=== PATIENT | female | born 1980 | race Caucasian/White ===

== ENCOUNTER 2019-05-01 20:21 | Emergency (ER) | payer SELFPAY ==
[~2019-05-01] VITALS: Ht 152.4 cm; Wt 68.9 kg
[2019-05-01] MEDS ORDERED: SULF1TAB24 PO (20:55)
--- NOTE | 2019-05-01 20:56 | PHYS DOC ---
Past Medical History Attending Signature I have participated in the care of this patient and I have reviewed and agree with all pertinent clinical information above including history, exam, and recommendations. Adult General Chief Complaint Chief Complaint: LOWER EXTREMITY SWELLING HPI HPI 39-year-old female presents to the emergency department with complaints of sores to her left lower extremity. She has 2 areas of induration, one is draining a yellow stuff second his only erythematous and indurated, no fluctuance. Patient denies any fever, nausea, vomiting, chest pain, shortness of breath. Nothing makes her symptoms worse, nothing makes her symptoms better. She's attempted to aspirate and has only irritated the area. Review of Systems Review of Systems Constitutional: Denies fever or chills [] GI: Denies abdominal pain, nausea, vomiting, bloody stools or diarrhea [] Musculoskeletal: Denies back pain or joint pain [] Integument: 2 areas of induration, erythema, no fluctuance Neurologic: Denies headache, focal weakness or sensory changes [] All other systems were reviewed and found to be within normal limits, except as documented in this note. Current Medications Current Medications Current Medications Medications (Trade) Dose Ordered Sig/Cherelle Start Time Stop Time Status Last Admin Dose Admin Ceftriaxone Sodium (Rocephin) 1 gm 1X ONCE 05/01/19 21:00 05/01/19 21:01 DC 05/01/19 21:08 1 GM Allergies Allergies Allergies Coded Allergies Type Severity Reaction Last Updated Verified No Known Drug Allergies 05/01/19 No Physical Exam Physical Exam Constitutional: Well developed, well nourished, no acute distress, non-toxic appearance. [] Cardiovascular:Heart rate regular rhythm, no murmur [] Lungs & Thorax: Bilateral breath sounds clear to auscultation [] Skin: Warm, dry, no erythema, no rash. [] Back: No tenderness, no CVA tenderness. [] Extremities: left lower ext edema, warmth, redness appreciated 2 areas of induration, one with some drainage however non fluctuant [] Neurologic: Alert and oriented X 3, no focal deficits noted. [] Psychologic: Affect normal, judgement normal, mood normal. [] Current Patient Data Vital Signs Vital Signs Date Time Temp Pulse Resp B/P (MAP) Pulse Ox O2 Delivery O2 Flow Rate FiO2 05/01/19 21:00 99 17 111/64 (80) 99 Room Air 05/01/19 20:30 97.4 97.4 EKG EKG [] Radiology/Procedures Radiology/Procedures [] Course & Med Decision Making Course & Med Decision Making Pertinent Labs and Imaging studies reviewed. (See chart for details) []39-year-old female presents to the emergency department with complaints of sores to her left lower extremity. She has 2 areas of induration, one is draining a yellow stuff second his only erythematous and indurated, no fluctuance. Patient denies any fever, nausea, vomiting, chest pain, shortness of breath. Nothing makes her symptoms worse, nothing makes her symptoms better. She's attempted to aspirate and has only irritated the area. 2 areas of induration appreciated, the one area on the tilley is draining however very thick discharge, no fluctuance in either Cellulitic changes appreciated to left lower ext [id number] given in ER Plan Bactrim DS upon discharge Return precautions provided Dragon Disclaimer Dragon Disclaimer This electronic medical record was generated, in whole or in part, using a voice recognition dictation system. Departure Departure Impression: Primary Impression: Lower extremity cellulitis Additional Impression: Abscess of lower leg Disposition: HOME, SELF-CARE Condition: STABLE Referrals: NO PCP (PCP) Patient Instructions: Abscess, [id number], Cellulitis, [id number] Additional Instructions: Recommend follow up with PCP 3 - 5 days Return to the ER with worsening symptoms, intractable pain, fever, altered mental status Tylenol/Motrin as needed for pain Take antibiotics as directed Tramadol as needed for pain Scripts Sulfamethoxazole/Trimethoprim (BACTRIM DS TABLET) 1 Each Tablet 1 TAB PO BID for infection, #14 TAB Prov: AURA GALLEGO MD 05/01/19 Problem Qualifiers Primary Impression: Lower extremity cellulitis Laterality: left Qualified Codes: L03.116 - Cellulitis of left lower limb AURA GALLEGO MD May 01, 2019 20:56
[2019-05-01 21:00] VITALS: BP 111/64
[2019-05-01] MEDS ORDERED: cefTRIAXone IV Push 1 GM VIAL. IVP ONE (21:00)
== END 2019-05-01 21:10 | disposition home or self-care (01) ==
LOC: ER 20:21
DX: L03.116 Cellulitis of left lower limb (principal); L02.416 Cutaneous abscess of left lower limb
CPT/HCPCS: 96374; 99284; J0696

== ENCOUNTER 2019-06-20 09:58 | Emergency (ER) | payer SELFPAY ==
[~2019-06-20] VITALS: Ht 152.4 cm; Wt 68.1 kg
[~2019-06-20 09:58] MED LIST: SULF1TAB24 PO
[2019-06-20 10:21] VITALS: BP 136/78
[2019-06-20] MEDS ORDERED: IPRATRPIUM/ALBUTEROL 0.5/2.5MG 3 ML NEBU. NEB ONE (10:45)
--- NOTE | 2019-06-20 11:01 | PHYS DOC ---
Past Medical History Past Medical History: No Pertinent History (BRENDON TAYLOR APRN) Past Surgical History: Appendectomy (BRENDON TAYLOR APRN) Smoking Status: Current Every Day Smoker Alcohol Use: None Drug Use: Marijuana (BRENDON TAYLOR APRN) Adult General Chief Complaint Chief Complaint: COUGH HPI HPI Patient is a 39 year old female currently smoker presented to the ED today complaining of a cough for 3 days. Patient is also complaining of body aches, she states everything hurts including her hair ends. Patient is also complaining of vomiting. Denies any chance she is . Denies any significant abdominal pain. (BRENDON TAYLOR APRN) Review of Systems Review of Systems Constitutional: Reports subjective fevers, body aches Eyes: Denies change in visual acuity, redness, or eye pain [] HENT: Denies nasal congestion, sore throat [] Respiratory: Reports cough, denies shortness of breath [] Cardiovascular: No additional information not addressed in HPI [] GI: Reports vomiting. Denies abdominal pain, nausea, bloody stools or diarrhea [] : Denies dysuria or hematuria [] Musculoskeletal: Denies back pain or joint pain [] Integument: Denies rash or skin lesions [] Neurologic: Denies headache, focal weakness or sensory changes [] All other systems were reviewed and found to be within normal limits, except as documented in this note. (BRENDON TAYLOR APRN) Current Medications Current Medications Current Medications Medications (Trade) Dose Ordered Sig/Cherelle Start Time Stop Time Status Last Admin Dose Admin Albuterol/ Ipratropium (Duoneb) 3 ml 1X ONCE 06/20/19 10:45 06/20/19 10:46 DC 06/20/19 10:41 3 ML (JASSON PHILLIPS DO) Allergies Allergies Allergies Coded Allergies Type Severity Reaction Last Updated Verified No Known Drug Allergies 05/01/19 No (JASSON PHILLIPS DO) Physical Exam Physical Exam Constitutional: Well developed, well nourished, no acute distress, non-toxic appearance. [] HENT: Normocephalic, atraumatic, bilateral external ears normal, oropharynx moist, no oral exudates, nose normal. [] Eyes: PERRLA, EOMI, conjunctiva normal, no discharge. [] Neck: Normal range of motion, no tenderness, supple, no stridor. [] Cardiovascular:Heart rate regular rhythm, no murmur [] Lungs & Thorax: Bilateral breath sounds clear to auscultation [] Abdomen: Bowel sounds normal, soft, no tenderness, no masses, no pulsatile masses. [] Skin: Warm, dry, no erythema, no rash. [] Back: No tenderness, no CVA tenderness. [] Extremities: No tenderness, no cyanosis, no clubbing, ROM intact, no edema. [] Neurologic: Alert and oriented X 3, normal motor function, normal sensory function, no focal deficits noted. [] Psychologic: Affect normal, judgement normal, mood normal. [] (BRENDON TAYLOR APRN) Current Patient Data Vital Signs Vital Signs Date Time Temp Pulse Resp B/P (MAP) Pulse Ox O2 Delivery O2 Flow Rate FiO2 06/20/19 10:41 99 Room Air 06/20/19 10:21 99.2 67 16 136/78 (97) 99.2 (JASSON PHILLIPS DO) Lab Values Laboratory Tests Test 06/20/19 10:47 POC Urine HCG, Qualitative Hcg negative (Negative) (JASSON PHILLIPS DO) EKG EKG [] (BRENDON TAYLOR APRN) Radiology/Procedures Radiology/Procedures []PROCEDURE: CHEST PA & LATERAL EXAM: Chest, 2 views. HISTORY: Fever. Cold. COMPARISON: None. FINDINGS: 2 views of the chest are obtained. There is no infiltrate, pleural effusion or pneumothorax. The heart is normal in size. IMPRESSION: No acute pulmonary finding. Electronically signed by: Colleen Jolly MD (06/20/2019 11:18 AM) [facility] [place] DICTATED and SIGNED BY: COLLEEN JOLLY MD DATE: 06/20/19 1118 (BRENDON TAYLOR APRN) Course & Med Decision Making Course & Med Decision Making Pertinent Labs and Imaging studies reviewed. (See chart for details) This is a 39-year-old female patient presenting to the ED today with a cough for 3 days. Also complaining of body aches and subjective fevers. Chest x-ray interpreted by radiologist is negative for any acute findings. Patient received a DuoNeb treatment in the ED. Provided a note for work and discharged to home. (BRENDON TAYLOR APRN) Dragon Disclaimer Dragon Disclaimer This electronic medical record was generated, in whole or in part, using a voice recognition dictation system. (BRENDON TAYLOR APRN) Departure Departure Impression: Primary Impression: Smoking addiction Additional Impressions: Cough Fever Disposition: 01 HOME, SELF-CARE Condition: STABLE Referrals: NO PCP (PCP) follow up with your doctor in 1-2 weeks Patient Instructions: Cough, Adult, [id number], Smoking Cessation Additional Instructions: Please consider smoking cessation. You can take over the counter medications for your symptoms as needed for your symptoms. You need to follow up with your doctor in 1-2 weeks Scripts Albuterol Sulfate (PROAIR HFA INHALER) 8.5 Gm Hfa.aer.ad 2 PUFF IH PRN Q4-6HRS PRN for wheezing for 21 Days, #1 INHALER 0 Refills Prov: BRENDON TAYLOR APRN 06/20/19 Benzonatate (TESSALON PERLE) 100 Mg Capsule 1 CAP PO TID, #30 CAP Prov: BRENDON TAYLOR APRN 06/20/19 Attending Signature Attending Signature I have reviewed the PA/REPRODUCTION TECHNICIAN's note and plan of care. I was available for consultation as needed during the patient's visit in the emergency department. I agree with the clinical impression, plan, and disposition. (JASSON PHILLIPS DO) Problem Qualifiers Additional Impressions: Fever Fever type: unspecified Qualified Codes: R50.9 - Fever, unspecified BRENDON TAYLOR APRN Jun 20, 2019 11:01 JASSON PHILLIPS DO Jun 20, 2019 15:30
--- NOTE | 2019-06-20 11:21 | RAD ---
EXAM: Chest, 2 views. HISTORY: Fever. Cold. COMPARISON: None. FINDINGS: 2 views of the chest are obtained. There is no infiltrate, pleural effusion or pneumothorax. The heart is normal in size. IMPRESSION: No acute pulmonary finding. Electronically signed by: Colleen Jolly MD (06/20/2019 11:18 AM) [facility] [place]
[2019-06-20] MEDS ORDERED: BENZ100C PO (11:27)
[2019-06-20] MEDS ORDERED: ALBU2.5V8 IH (11:27)
== END 2019-06-20 11:44 | disposition home or self-care (01) ==
LOC: ER 09:58
DX: F17.200 Nicotine dependence, unspecified, uncomplicated (principal); R50.9 Fever, unspecified; R05 Cough; R11.10 Vomiting, unspecified; F12.90 Cannabis use, unspecified, uncomplicated; Z90.89 Acquired absence of other organs
CPT/HCPCS: 71046; 81025; 94640; 99283; J7620

== ENCOUNTER 2019-07-02 04:04 | Emergency (ER) | payer SELFPAY ==
[~2019-07-02] VITALS: Ht 152.4 cm; Wt 68.9 kg
[~2019-07-02 04:04] MED LIST changes: +ALBU2.5V8 IH; +BENZ100C PO
[2019-07-02 04:16] VITALS: BP 123/75
[2019-07-02] MEDS ORDERED: GUAI120L35 PO (04:35)
[2019-07-02] MEDS ORDERED: AZIT250T PO (04:35)
--- NOTE | 2019-07-02 04:35 | PHYS DOC ---
Past Medical History Past Medical History: No Pertinent History Past Surgical History: Appendectomy Smoking Status: Current Every Day Smoker Alcohol Use: None Drug Use: Marijuana Adult General Chief Complaint Chief Complaint: PLEURISY HPI HPI Patient is a 39 year old female who presents with complaint of cough and chest congestion for the last few days. Patient states that she is now having pain on the left side of her chest that radiates from her back all the way around to the front. She states the pain is worsened with deep breathing and with coughing. She describes pain as sharp and stabbing and at times burning in nature. She states the cough is been productive of clear to yellow sputum. Patient states that nothing is improving her symptoms. She denies any fever. She denies any nausea, vomiting or diaphoresis.[] Review of Systems Review of Systems Constitutional: Denies fever or chills [] Respiratory: Positive cough without shortness of breath [] Cardiovascular: No additional information not addressed in HPI [] GI: Denies abdominal pain, nausea, vomiting or diarrhea [] Integument: Denies rash or skin lesions [] Neurologic: Denies headache, focal weakness or sensory changes [] Allergies Allergies Allergies Coded Allergies Type Severity Reaction Last Updated Verified No Known Drug Allergies 05/01/19 No Physical Exam Physical Exam Constitutional: Well developed, well nourished, no acute distress, non-toxic a ppearance. [] Cardiovascular: Regular rate and rhythm[] Lungs & Thorax: Bilateral breath sounds clear to auscultation [] Skin: Warm, dry, no erythema, no rash. [] Back: No tenderness, no CVA tenderness. [] Extremities: No tenderness, no cyanosis, no clubbing, ROM intact, no edema. [] Current Patient Data Vital Signs Vital Signs Date Time Temp Pulse Resp B/P (MAP) Pulse Ox O2 Delivery O2 Flow Rate FiO2 07/02/19 04:16 97.8 82 12 123/75 (91) 96 Room Air 97.8 EKG EKG [] Radiology/Procedures Radiology/Procedures [] Course & Med Decision Making Course & Med Decision Making Pertinent Labs and Imaging studies reviewed. (See chart for details) [] Dragon Disclaimer Dragon Disclaimer This electronic medical record was generated, in whole or in part, using a voice recognition dictation system. Departure Departure Impression: Primary Impression: Pleurisy Additional Impression: Bronchitis Disposition: 01 HOME, SELF-CARE Condition: STABLE Referrals: NO PCP (PCP) Patient Instructions: Acute Bronchitis, Pleurisy Scripts Guaifenesin/Codeine Phosphate (Codeine-Guaifen 10-100 mg/5 ml) 120 Ml Liquid 5 ML PO PRN Q6HRS PRN for cough and congestion MDD 20 Milliliter(s) for 6 Days, #120 ML 0 Refills Prov: MARTHA STEWART Jr. DO 07/02/19 Azithromycin (ZITHROMAX) 250 Mg Tablet 1 PKG PO UD, #6 TAB Prov: MARTHA STEWART Jr. DO 07/02/19 Problem Qualifiers MARTHA STEWART Jr. DO Jul 02, 2019 04:35
--- NOTE | 2019-07-02 04:43 | RAD ---
Two-view chest dated 07/02/2019. Comparison made to 06/20/2019. CLINICAL INDICATION: Cough. FINDINGS: PA and lateral views obtained. Heart and mediastinal contours within normal limits. Lungs are clear. No consolidation or pleural effusion. No pneumothorax. IMPRESSION: No acute radiographic abnormality. Electronically signed by: Seng Sneed MD (07/02/2019 4:39 AM) [id number]
[2019-07-02] MEDS ORDERED: AZITHROMYCIN 250 MG TABLET. PO ONE (05:00)
[2019-07-02] MEDS ORDERED: ACETAMINOPHEN/CODEINE 300/30MG TABLET. PO ONE (05:00)
== END 2019-07-02 04:45 | disposition home or self-care (01) ==
LOC: ER 04:04
DX: J40 Bronchitis, not specified as acute or chronic (principal); R09.1 Pleurisy; R07.89 Other chest pain; R05 Cough; R09.89 Other specified symptoms and signs involving the circulatory and respiratory systems; F12.90 Cannabis use, unspecified, uncomplicated; F17.200 Nicotine dependence, unspecified, uncomplicated; Z90.89 Acquired absence of other organs
CPT/HCPCS: 71046; 99283